=== PATIENT | female | born 1935 | race Caucasian/White ===

== ENCOUNTER 2020-04-28 11:55 | Emergency (ER) | payer MEDICARE, BC, OTHER ==
[~2020-04-28] VITALS: Ht 157.5 cm; Wt 50.0 kg
[2020-04-28] MEDS ORDERED: LISI10TA15 PO (12:13)
[2020-04-28] MEDS ORDERED: LIDOCAINE 5% (LIDODERM) PATCH TD ONE (13:30)
[2020-04-28] MEDS ORDERED: ACETAMINOPH W/CODEINE #3 TAB UD PO ONE (13:30)
[2020-04-28 13:48] LABS: BASO # 0.1 10^3/uL (0.0-0.2); BASO % 0.6 % (0.0-1.0); EOS % 0.5 % (0.0-3.0); HEMATOCRIT 40.2 % (36.0-47.0); HEMOGLOBIN 12.8 g/dl (12.0-15.5); LYMPH # 1.6 10^3/uL (1.5-5.0); LYMPH % 21.1 % (24.0-44.0); MEAN CORPUSCULAR HEMOGLOBIN 29.8 pg (27.0-33.0); MEAN CORPUSCULAR HGB CONC 31.8 g/dl (32.0-36.5); MEAN CORPUSCULAR VOLUME 93.5 fl (80.0-96.0); MONO # 0.7 10^3/uL (0.0-0.8); MONO % 8.4 % (0.0-5.0); NEUTROPHILS # 5.3 10^3/uL (1.5-8.5); NEUTROPHILS % 69.1 % (36.0-66.0); PLATELET COUNT, AUTOMATED 330 10^3/uL (150-450); WHITE BLOOD COUNT 7.7 10^3/uL (4.0-10.0)
[2020-04-28 13:54] LABS: APPEARANCE, URINE CLEAR (CLEAR); BACTERIA, URINE AUTO 1+ (NEGATIVE); BILIRUBIN, URINE AUTO NEGATIVE (NEGATIVE); BLOOD, URINE BLOOD NEGATIVE (NEGATIVE); COLOR, URINE YELLOW (YELLOW); GLUCOSE, URINE (UA) AUTO NEGATIVE (NEGATIVE); KETONE, URINE AUTO NEGATIVE (NEGATIVE); LEUKOCYTE ESTERASE, URINE AUTO TRACE (NEGATIVE); NITRITE, URINE AUTO NEGATIVE (NEGATIVE); PROTEIN, URINE AUTO NEGATIVE (NEGATIVE); RBC, URINE AUTO 0 /HPF (0-3); SQUAMOUS EPITHELIAL CELL UR AU 2 /HPF (0-6); UROBILINOGEN, URINE AUTO 0.2 mg/dL (0.0-2.0); WBC, URINE AUTO 1 /HPF (0-3)
--- NOTE | 2020-04-28 14:06 | REPVR ---
PROCEDURE INFORMATION: Exam: CT Head Without Contrast Exam date and time: 04/28/2020 1:49 PM Age: 85 years old Clinical indication: Injury or trauma; Fall; Initial encounter; Blunt trauma (contusions or hematomas); Additional info: Fall, hit head TECHNIQUE: Imaging protocol: Computed tomography of the head without contrast. Radiation optimization: All CT scans at this facility use at least one of these dose optimization techniques: automated exposure control; mA and/or kV adjustment per patient size (includes targeted exams where dose is matched to clinical indication); or iterative reconstruction. COMPARISON: CT Head without contrast 11/26/2015 2:29 PM FINDINGS: Brain: There is no acute intracranial hemorrhage, cerebral edema, or midline shift. A small area of chronic encephalomalacia is noted in the left occipital lobe. Chronic microvascular ischemic changes are seen in the periventricular white matter. Age-related cerebral and cerebellar volume loss is present. Ventricles: No hydrocephalus. Bones/joints: No acute fracture. Sinuses: There is no acute sinusitis. Mastoid air cells: The mastoid air cells are clear. Orbits: The included orbital structures are unremarkable. Vasculature: Atherosclerotic calcifications are seen involving the cavernous carotid arteries. Soft tissues: Unremarkable. IMPRESSION: 1. No acute intracranial abnormality. 2. Atrophy and chronic deep white matter ischemic changes. Electronically signed by: Yaron Clarke On 04/28/2020 14:06:20 PM
--- NOTE | 2020-04-28 14:15 | REPVR ---
PROCEDURE INFORMATION: Exam: CT Lumbar Spine Without Contrast Exam date and time: 04/28/2020 1:49 PM Age: 85 years old Clinical indication: Injury or trauma; Fall; Initial encounter; Blunt trauma (contusions or hematomas); Additional info: Fall, hit head TECHNIQUE: Imaging protocol: Computed tomography images of the lumbar spine without contrast. Radiation optimization: All CT scans at this facility use at least one of these dose optimization techniques: automated exposure control; mA and/or kV adjustment per patient size (includes targeted exams where dose is matched to clinical indication); or iterative reconstruction. COMPARISON: No relevant prior studies available. FINDINGS: Vertebrae: Diffuse osteopenia. Moderate leftward lumbar spinal curvature. Sclerosis is present with pseudoarthrosis between the spinous processes at L2-L3 and L3-L4, to a lesser degree L4-L5 and L1-L2 consistent with Baastrup disease. There is 5.9 mm anterolisthesis of L4 on L5 in the supine position. Discs/Spinal canal/Neural foramina: T11-12 disc calcification without displacement. Moderate right L3-L4 and L4-L5 neural foraminal narrowing. Severe right L4-L5 degenerative disc narrowing. Moderate bilateral L4-L5 primary facet osteoarthritis. Severe left L5-S1 degenerative disc narrowing Moderate left L5-S1 primary facet osteoarthritis. Sacrum/coccyx: Sclerosis of the right S1 and S2 sacral ala. Kidneys and ureters: Right renal medial lower pole 19 mm probable benign cyst. Anterior left mid-lower renal 13.5 mm, posterolateral left mid renal 22.9 mm probable benign simple cyst. Stomach and bowel: Surgical clips at the gastroesophageal junction. Vasculature: Infrarenal abdominal aortic aneurysm is present measuring 7.7 cm AP dimension. There is no evidence of rupture or leakage. The iliac arteries show moderate bilateral atherosclerotic calcifications without evidence of aneurysm. Soft tissues: Unremarkable. IMPRESSION: 1. Infrarenal abdominal aortic aneurysm. 2. Right sacral ala chronic stress fracture. 3. 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 Clinical correlation is recommended. 4. Grade 1 L4-5 degenerative type anterolisthesis. 5. Additional degenerative changes as above. 6. No acute lumbar spinal bony injury identified. 7. Bilateral renal probable benign simple cysts. COMMENTS: Consistent with the [employer]'s Incidental Findings Committee white paper (J Am Izabela Radiol 2018): Any incidental renal lesion less than 1.0 cm or classified as too small to characterize, or any incidental cystic renal lesion characterized as simple-appearing, is likely benign. No follow-up imaging is recommended for these lesions per consensus recommendations based on imaging criteria. Electronically signed by: Ben Bassett On 04/28/2020 14:15:06 PM
[2020-04-28 14:17] LABS: BLOOD UREA NITROGEN 22 MG/DL (7-18); CALCIUM LEVEL 9.3 MG/DL (8.8-10.2); CARBON DIOXIDE LEVEL 30 MEQ/L (21-32); CHLORIDE LEVEL 105 MEQ/L (98-107); CK-MB VALUE MASS < 1.0 NG/ML (<3.6); CPK CREATINE PHOSPHOKINASE 41 U/L (26-192); CREATININE FOR GFR 0.62 MG/DL (0.55-1.30); GLOMERULAR FILTRATION RATE > 60.0 (>32); GLUCOSE, FASTING 83 MG/DL (70-100); MB/CK RELATIVE INDEX 2.44 (< OR =4); POTASSIUM SERUM 3.5 MEQ/L (3.5-5.1); SODIUM LEVEL 138 MEQ/L (136-145); TROPONIN I < 0.02 NG/ML (< 0.10)
[2020-04-28] MEDS ORDERED: LIDO5DIS41 TOP (16:27)
[2020-04-28] MEDS ORDERED: ROLLMIS8 XX (16:34)
[2020-04-28 18:25] VITALS: BP 117/90
--- NOTE | 2020-04-28 18:55 | ECGEPIP ---
[facility] - ED Test Date: 2020-04-28 Pat Name: JACKY KLEIN Department: Room: - Gender: Female [employer]: rebecca : 1935 Requested By: MARCOS Mitchell PA-C Order Number: [id number] Reading MD: Rodolfo Angelo Measurements Intervals [place] Rate: 67 P: 71 OK: 143 QRS: -12 QRSD: 78 T: 38 QT: 382 QTc: 404 Interpretive Statements SINUS RHYTHM NO PRIORS FOR COMPARISON Electronically Signed on 04-28-2020 18:54:42 EDT by Rodolfo Angelo
[2020-04-28] MEDS ORDERED: **NOTE PATIENT COMMENT** MISC XX SCH (21:00)
== END 2020-04-28 18:28 | disposition home or self-care (01) ==
LOC: M ED 11:55 → EDBD 11:55 → M ED 18:28
DX: S39.012A Strain of muscle, fascia and tendon of lower back, initial encounter (principal); M48.48XA Fatigue fracture of vertebra, sacral and sacrococcygeal region, initial encounter for fracture; W18.39XA Other fall on same level, initial encounter; Y92.89 Other specified places as the place of occurrence of the external cause; I71.4 Abdominal aortic aneurysm, without rupture; I10 Essential (primary) hypertension; K27.9 Peptic ulcer, site unspecified, unspecified as acute or chronic, without hemorrhage or perforation; Z79.899 Other long term (current) drug therapy; Z88.0 Allergy status to penicillin; Z88.8 Allergy status to other drugs, medicaments and biological substances; F17.210 Nicotine dependence, cigarettes, uncomplicated

== ENCOUNTER → 2020-06-09 | Outpatient (CLI) | payer MEDICARE, BC, OTHER ==
[~2020-06-09] MED LIST: ISOVUE-370 76% 100ML VIAL As Ordered ONE; LIDO5DIS41 TOP; LISI10TA15 PO; ROLLMIS8 XX
--- NOTE | 2020-06-10 00:37 | REP ---
CT ANGIOGRAM CHEST: TECHNIQUE: Axial contrast-enhanced images from the thoracic inlet to the upper abdomen using 100 mL Isovue-370 intravenous contrast material with multiplanar reformations. COMPARISON: CT chest 09/11/2017. Thoracic aorta is normal in caliber with no aneurysm. There is mild diffuse atherosclerotic calcification of the thoracic aorta. No pulmonary embolism is seen. Heart is mildly enlarged. There is no pleural or pericardial effusion. There is no significant mediastinal, hilar, or chest wall lymphadenopathy. Nodule at the posterior aspect of the left thyroid is unchanged since prior study. There are diffuse emphysematous changes and diffuse fibrotic scarring. There is mild elevation of the left hemidiaphragm. Focal ground-glass parenchymal opacity in the right upper lobe posteriorly has a somewhat triangular shape and is unchanged, probably representing focal fibrosis. There are diffuse degenerative changes of the spine without compression fracture. IMPRESSION: Stable chronic findings, as above. Electronically Signed by Basil Mullins MD 06/10/2020 10:53 P
--- NOTE | 2020-06-10 01:35 | REP ---
CT ANGIOGRAM ABDOMEN AND PELVIS: TECHNIQUE: Axial contrast-enhanced images from the lung bases to the pubic symphysis using 100 mL Isovue-370 intravenous contrast material with multiplanar reformations. MIP reconstruction images are performed. There is diffuse aneurysmal dilatation of the abdominal aorta with a fusiform shape. The fusiform aneurysm extends for the entire length of the infrarenal abdominal aorta, approximately 11 cm. Maximum AP diameter of the aneurysm is 7.9 cm and transverse 6.2 cm. There is a large amount of intraluminal thrombus within the aneurysm. The patent lumen at the segment of greatest diameter is 2.7 x 2.3 cm in AP and transverse dimensions, respectively. Celiac and superior mesenteric artery origins demonstrate mild plaquing and narrowing, as do bilateral renal artery origins. Inferior mesenteric artery is not visualized. No adenopathy is seen in the abdomen or pelvis. Liver, gallbladder, spleen are unremarkable. There is mild diffuse adrenal gland thickening. Pancreas demonstrates no mass. There are bilateral renal cysts without hydronephrosis. Urinary bladder is not well distended and not well evaluated. There is no pelvic mass. No bowel abnormality is seen. There are degenerative changes of the spine with no compression fracture. IMPRESSION: Large fusiform aneurysm infrarenal abdominal aorta, as discussed in detail above. Electronically Signed by Basil Mullins MD 06/10/2020 10:53 P
== END ==
LOC: M RAD 13:54
PROVIDERS: ATTEND Physician Assistant
DX: I71.4 Abdominal aortic aneurysm, without rupture (principal)
CPT/HCPCS: 71275; 74174; Q9967

== ENCOUNTER → 2020-12-28 | Outpatient (CLI) | payer MEDICARE, BC, OTHER ==
[~2020-12-28] MED LIST changes: -ISOVUE-370 76% 100ML VIAL As Ordered ONE
--- NOTE | 2020-12-28 10:06 | REP ---
INDICATION: AAA. COMPARISON: Comparison CT abdomen June 09, 2020.. TECHNIQUE: Transabdominal retroperitoneal/aortic scanning with Doppler. FINDINGS: Scanning through the retroperitoneum demonstrates that the abdominal aorta is normal in caliber at the level of the diaphragmatic hiatus measuring 2.2 x 2.4 cm in AP by transverse dimension respectively. Scanning of the level of the renal arteries shows at the the aorta is obscured by bowel gas at this level. An abdominal aortic aneurysm is seen in the distal aorta. This is not as well seen sonographically as on recent CT study. Heavy calcification in the anterior wall of the aorta is felt to preclude optimal anteroposterior dimension. The greatest measure dimensions today are 5.4 by 6.8 cm anterior to posterior by right to left. The CT study shows an anteroposterior dimension of up to 8.2 cm. I do not believe we are seeing the aneurysm Ruiz by ultrasound. The right and left common iliac arteries are normal measuring 1.1 and 1.4 cm in AP dimension respectively. No aneurysm is seen. No periaortic disease is observed. IMPRESSION: Large distal abdominal aortic aneurysm is again seen although not as well displayed as by CT study. Measurements are discordant as above likely due to technical factors. Repeat CT study suggested for accurate size follow-up.. <Electronically signed by Linden Lowe > 12/28/20 100
== END ==
LOC: M RAD 09:10
PROVIDERS: ATTEND Surgery Vascular Surgery
DX: I71.4 Abdominal aortic aneurysm, without rupture (principal)

== ENCOUNTER → 2022-07-13 | Outpatient (CLI) | payer MEDICARE, BC, OTHER ==
[~2022-07-13] MED LIST changes: -LISI10TA15 PO; +LISI10TA24 PO
== END ==
LOC: M RAD 13:55
PROVIDERS: ATTEND Internal Medicine
DX: R63.4 Abnormal weight loss (principal); R91.8 Other nonspecific abnormal finding of lung field; N28.1 Cyst of kidney, acquired; I71.4 Abdominal aortic aneurysm, without rupture

== ENCOUNTER → 2022-08-29 | Outpatient (CLI) | payer MEDICARE, BC, OTHER | LOC: M PLARAD 11:58 | PROVIDERS: ATTEND Internal Medicine | DX: R91.8 Other nonspecific abnormal finding of lung field (principal) | CPT/HCPCS: 78815; A9552 ==